=== PATIENT | male | born 1950 | race Caucasian/White ===

== ENCOUNTER 2021-09-06 05:37 | Day surgery (SDC) | payer OTHER ==
[~2021-09-06] VITALS: Ht 182.9 cm; Wt 100.0 kg
[~2021-09-06 05:37] MED LIST: Aspir 8181 MG PO; B-12500 MC2 PO; FAMO20 PO; GLIP10 PO; INSN100I SC; INSULANI; LISI10 PO; LISI5 PO; Lovastatin20 MG PO; METF500C PO; PANT40 PO; TRULICITY1.5 MG/0.1 SQ
--- NOTE | 2021-09-06 08:15 | NUR ---
assumed care of patient. patient alert and responds appropritely. right groin site soft and nontender. no hematoma, no bleeding. denies discomfort.
--- NOTE | 2021-09-06 11:45 | NUR ---
PATIENT A&O. AT BEDSIDE.PATIENT AND WFE VERBALIZED UBDERSTANDING OF DISCHARGE INSTRUCTIONS AND PRECAUTIONS. RIGHT GROIN SITE REMAINS SOFT AND NONTENDER, NO HEMATOMA, NO BLEEDING. DRESSING D&I.IV SIT DCED WITH ACTHETER INTACT. NO FURTHER QUSETIONS. PATIENT DISCHRGED VIA WHEEL CAIR. DRIVING.
== END 2021-09-06 15:29 | disposition home or self-care (01) ==
LOC: MHTC 05:37
DX: I25.709 Atherosclerosis of coronary artery bypass graft(s), unspecified, with unspecified angina pectoris (principal); I25.119 Atherosclerotic heart disease of native coronary artery with unspecified angina pectoris; I25.82 Chronic total occlusion of coronary artery; R94.39 Abnormal result of other cardiovascular function study; I10 Essential (primary) hypertension; E78.5 Hyperlipidemia, unspecified; I51.9 Heart disease, unspecified; E78.00 Pure hypercholesterolemia, unspecified; K31.9 Disease of stomach and duodenum, unspecified; I77.819 Aortic ectasia, unspecified site; R47.81 Slurred speech; Z95.1 Presence of aortocoronary bypass graft; E11.9 Type 2 diabetes mellitus without complications; K21.9 Gastro-esophageal reflux disease without esophagitis; G47.33 Obstructive sleep apnea (adult) (pediatric); Z87.891 Personal history of nicotine dependence; Z88.5 Allergy status to narcotic agent; Z79.82 Long term (current) use of aspirin; Z79.4 Long term (current) use of insulin; Z79.899 Other long term (current) drug therapy
CPT/HCPCS: 76937; 93455; 99152; 99153; C1760; C1769; C1894; J1644; J2250; J3010; J7030; J7040; Q9967

== ENCOUNTER 2022-04-24 10:20 | Day surgery (SDC) | payer OTHER ==
[~2022-04-24] VITALS: Ht 182.9 cm; Wt 99.0 kg
--- NOTE | 2022-04-24 11:55 | NUR ---
04/24/22 1155 Alma Shin TETRACAINE PLACED IN LEFT EYE 1142 PLEDGET PLACED IN LEFT EYE AT 1143
== END 2022-04-24 13:15 | disposition home or self-care (01) ==
LOC: ORSCSDS 10:20
PROVIDERS: Ophthalmology
PROC: 08RK3JZ Replacement of Left Lens with Synthetic Substitute, Percutaneous Approach (ICD-10-PCS; principal; 2022-04-24 12:00)
DX: E11.36 Type 2 diabetes mellitus with diabetic cataract (principal); H25.12 Age-related nuclear cataract, left eye; H52.202 Unspecified astigmatism, left eye; I10 Essential (primary) hypertension; I25.10 Atherosclerotic heart disease of native coronary artery without angina pectoris; Z87.891 Personal history of nicotine dependence; G47.33 Obstructive sleep apnea (adult) (pediatric); Z79.4 Long term (current) use of insulin; I25.2 Old myocardial infarction; Z79.899 Other long term (current) drug therapy; E78.5 Hyperlipidemia, unspecified; Z79.84 Long term (current) use of oral hypoglycemic drugs
CPT/HCPCS: 82947; J2001; J2250; J3010; J3301; J7040; V2632

== ENCOUNTER 2022-05-01 08:51 | Day surgery (SDC) | payer OTHER ==
[~2022-05-01] VITALS: Ht 182.9 cm; Wt 98.0 kg
== END 2022-05-01 11:05 | disposition home or self-care (01) ==
LOC: ORSCSDS 08:51
PROVIDERS: Ophthalmology
PROC: 08DJ3ZZ Extraction of Right Lens, Percutaneous Approach (ICD-10-PCS; principal; 2022-05-01 10:30)
DX: H25.11 Age-related nuclear cataract, right eye (principal); Z96.1 Presence of intraocular lens; I25.2 Old myocardial infarction; I25.10 Atherosclerotic heart disease of native coronary artery without angina pectoris; I10 Essential (primary) hypertension; K21.9 Gastro-esophageal reflux disease without esophagitis; E78.5 Hyperlipidemia, unspecified; E11.9 Type 2 diabetes mellitus without complications; Z79.82 Long term (current) use of aspirin; Z79.4 Long term (current) use of insulin; Z87.891 Personal history of nicotine dependence; Z79.899 Other long term (current) drug therapy
CPT/HCPCS: 82947; J2001; J2250; J3010; J3301; J7040; V2632

== ENCOUNTER 2022-09-17 14:33 | Inpatient (IN) | payer OTHER ==
[~2022-09-17] VITALS: Ht 182.9 cm; Wt 98.7 kg
[~2022-09-17 14:33] MED LIST changes: -INSULANI; +INSULANI SC; +TRULICITY1.5 MG/0.1 SC; -TRULICITY1.5 MG/0.1 SQ
[2022-09-17 16:04] LABS: BASOPHILS ABSOLUTE AUTO 0.06 K/mm3 (0.00-0.23); BASOPHILS PERCENT AUTO 1 % (0-2); EOSINOPHILS ABSOLUTE AUTO 0.26 K/mm3 (0.00-0.68); EOSINOPHILS PERCENT AUTO 4 % (0-6); Hematocrit 41.7 % (37.0-53.0); Hemoglobin 14.2 g/dL (13.5-17.5); IMMATURE GRAN ABSOLUTE AUTO 0.02 K/mm3 (0.00-0.10); IMMATURE GRAN PERCENT AUTO 0 % (0-1); LYMPHOCYTES ABSOLUTE AUTO 2.77 K/mm3 (0.84-5.20); LYMPHOCYTES PERCENT AUTO 38 % (21-46); MONOCYTES ABSOLUTE AUTO 0.79 K/mm3 (0.16-1.47); MONOCYTES PERCENT AUTO 11 % (4-13); Mean Corpuscular HGB 29.1 pg (26.0-34.0); Mean Corpuscular HGB Conc 34.1 g/dL (31.5-36.5); Mean Corpuscular Volume 86 fL (80-100); Mean Platelet Volume 10.1 fL (9.1-12.4); NEUTROPHILS ABSOLUTE AUTO 3.35 K/mm3 (1.96-9.15); NEUTROPHILS PERCENT AUTO 46 % (41-73); Platelet Count 227 K/mm3 (150-400); RDW Coefficient Variation 12.8 % (11.7-14.2); RDW Standard Deviation 39.6 fL (35.1-46.3); Red Blood Cell Count 4.88 M/mm3 (4.30-5.90); White Blood Cell Count 7.25 K/mm3 (4.00-11.30)
[2022-09-17 16:38] LABS: Albumin, Blood 3.4 g/dL (3.4-5.0); Albumin/Globulin Ratio 0.8 (0.8-1.8); Bilirubin, Total 0.4 mg/dL (0.1-1.0); Bun/Creatinine Ratio 19.3 (12.0-20.0); Creatinine, Blood 1.14 mg/dL (0.60-1.20); Globulin, Blood 4.4 g/dL (2.2-4.0); Potassium, Blood 4.2 mmol/L (3.5-5.5); Total Protein, Blood 7.8 g/dL (6.4-8.2)
--- NOTE | 2022-09-17 19:11 | NUR ---
PT CHART REVIEWED FOR ADMISSION
[2022-09-17 20:18] LABS: U Amphetamine Screen Not Detected; U Barbituate Screen Not Detected; U Benzodiazapine Screen Not Detected; U Buprenorphine Screen Not Detected; U Cannabinoids Screen Not Detected; U Cocaine Screen Not Detected; U Methadone Screen Not Detected; U Methamphetamine Screen Not Detected; U Opiates Screen Not Detected; U Oxycodone Screen Not Detected; U Phencyclidine Screen Not Detected; U Propoxyphene Screen Not Detected
[2022-09-17 20:40] VITALS: BP 169/68
[2022-09-18] VITALS (7 sets, daily range): BP systolic 149–189; BP diastolic 55–81
--- NOTE | 2022-09-18 04:06 | NUR ---
SHIFT SUMMARY. PT ARRIVED ON UNIT EARLY IN EVENING. AOX4, PLEASANT, COOPERATIVE WITH CARE. ROOM AIR, ADA DIET. ADMITTED FOR LIKELY CVA. BEDREST DUE TO SIGNIFICANT LEG WEAKNESS. PT USES WHEELCHAIR AT BASELINE BUT REPORTS HE OFTEN IS ABLE TO WALK SHORT DISTANCES WITH MINIMAL ASSISTANCE WHICH HE FEELS LIKE HE IS DEFINITELY NOT ABLE TO DO NOW. SCHEDULED FOR MRI TODAY, SCREENING FORM COMPLETED. NS RUNNING THROUGHOUT SHIFT PER ORDER. PT WAS HAVING TROUBLE SLEEPING EARLY THIS MORNING. CALLED HOSPITALIST DR. LANE WHO ORDERED ONE TIME DOSE OF TRAZADONE AND AFTER ADMINISTRATION PT HAS BEEN SLEEPING PEACEFULLY. PT IS EXCEPTIONALLY PLEASANT AND COOPERATIVE WITH CARE. CALLS APPROPRIATELY. CONTINENT. BED LOCKED IN LOWEST POSITION. CALL LIGHT LEFT WITHIN REACH.
[2022-09-18] MEDS ORDERED: THERA-D2000 UNIT PO (05:25)
[2022-09-18] MEDS ORDERED: Flonase 0.05% N16 GM (05:26)
[2022-09-18] MEDS ORDERED: MELA3 PO (05:32)
[2022-09-18] MEDS ORDERED: ARTIFICIAL TEA1 EAC1 BOTHEYES (05:34)
[2022-09-18] MEDS ORDERED: MIRALAX17 GM PO (05:35)
[2022-09-18] MEDS ORDERED: OXAYDO5 M1 PO (05:35)
[2022-09-18] MEDS ORDERED: RANO500T PO (05:35)
--- NOTE | 2022-09-18 16:00 | NUR ---
CALLED DR CALZADA- PT STATED THEY "ATTEMPTED TO DO AN MRI ON ME BEFORE AND IT DIDN'T WORK" PT STATES HE NEEDS TO BE PREMEDICATED FOR THE MRI. CALLED AND RECIEVED A VERBAL ORDER FOR IV ATIVAL 1MG DOSE PRE MRI.
--- NOTE | 2022-09-18 17:00 | NUR ---
CALLED DR CALZADA- PT WAS PREPARING FOR MRI. VITALS CHECKED IV ATIVAN PUSH STARTED ORDERED FOR CLAUSTERPHOBIA. PT HR 49. SPOKE TO DR CALZADA OK TO GIVE O.75MG OF THE CURRENT PUSH. ADDITIONAL 0.25MG WASTED WITH MARANDA KAY. PT WAS ABLE TO GO DOWN AND HAVE THE MRI WITHOUT INCIDENT.
--- NOTE | 2022-09-18 18:38 | NUR ---
CALLED DR CALZADA- PT BP HAS BEEN ELEVATED GREATER THAN 180 FOR THE LAST THREE CHECKS, PERMISIVE HTN ALLOWED UP TO 180. PRN HYDRALIZINE 10MG IV Q4 FOR SBP OVER 180.
--- NOTE | 2022-09-18 18:44 | NUR ---
SHIFT SUMMARY- PT ALERT AND ORIENTED, RIGHT SIDEDED DEFICITE REMAINS UNCHANGED THIS EVENING COMPARED TO THIS MORNING DR CALZADA REQUESTED Q4 NEURO CHECKS. BP ELEVATED THIS EVENING TO SBP GREATER THAN 180. HYDRALIZINE ORDERED FOR SBP OVER 180. PT RECIEVED 0.75 MG OF IV ATIVAN PRE MRI TODAY. HE WAS SEEN BY PT/OT/ST THE DENTAL HYGENIST, ECHO AND ULTRASOUND WELL THE MRI TODAY. PT MAY BE A LITTLE MORE TIRED TONIGHT THAN PREVIOUS D/T ALL THE ACTIVITY. SPOUSE IS STAYING AT THE BEDSIDE, SLEEPING ON THE BENCH. PT REQUESTED THAT SHE STAY WITH HIM. PT IS A [place] . PT IS A 2P MAX ASSIST TO SIT AT THE EOB. RIGHT NET DEVELOPER ARCHITECT IS MINIMAL, RIGHT ARM LIFT IS A LITTLE MORE THIS EVENINGWHEN COMPARD TO THIS MORNING. RIGHT SIDED FACIAL DROOP IS MORE NOTABLE IN THE MORNING WHEN COMPARED TO WHEN THE PT IS MORE AWAKE. WILL PASS ON TO NIGHT RN IN BEDSIDE REPORT. PT IN BED, CALL LIGHT IN REACH NO S&S OF DISTRESS NOTED.
[2022-09-19 03:22] VITALS: BP 171/67
[2022-09-19 05:46] LABS: BASOPHILS ABSOLUTE AUTO 0.05 K/mm3 (0.00-0.23); BASOPHILS PERCENT AUTO 1 % (0-2); EOSINOPHILS PERCENT AUTO 3 % (0-6); Hematocrit 41.6 % (37.0-53.0); Hemoglobin 14.2 g/dL (13.5-17.5); IMMATURE GRAN ABSOLUTE AUTO 0.03 K/mm3 (0.00-0.10); IMMATURE GRAN PERCENT AUTO 0 % (0-1); LYMPHOCYTES ABSOLUTE AUTO 2.35 K/mm3 (0.84-5.20); LYMPHOCYTES PERCENT AUTO 33 % (21-46); MONOCYTES ABSOLUTE AUTO 0.72 K/mm3 (0.16-1.47); MONOCYTES PERCENT AUTO 10 % (4-13); Mean Corpuscular HGB 29.2 pg (26.0-34.0); Mean Corpuscular HGB Conc 34.1 g/dL (31.5-36.5); Mean Corpuscular Volume 86 fL (80-100); Mean Platelet Volume 10.4 fL (9.1-12.4); NEUTROPHILS ABSOLUTE AUTO 3.79 K/mm3 (1.96-9.15); NEUTROPHILS PERCENT AUTO 53 % (41-73); Platelet Count 208 K/mm3 (150-400); RDW Coefficient Variation 12.8 % (11.7-14.2); RDW Standard Deviation 39.9 fL (35.1-46.3); Red Blood Cell Count 4.86 M/mm3 (4.30-5.90); White Blood Cell Count 7.14 K/mm3 (4.00-11.30)
[2022-09-19 06:17] LABS: Bun/Creatinine Ratio 14.7 (12.0-20.0); Calcium, Blood 8.4 mg/dL (8.5-10.1); Creatinine, Blood 1.02 mg/dL (0.60-1.20); Potassium, Blood 3.9 mmol/L (3.5-5.5)
[2022-09-19 07:12] VITALS: BP 167/62
--- NOTE | 2022-09-19 07:45 | NUR ---
SHIFT EMILY, PT REATING IN BED, PT HAS PO DROOP, AND DECREASED STRNGTH TO RIGHT SIDE. PT DURING NIGHT WHEN NOT SLEEPING HAS BEEN EXERSIZING HIS RIGHT ARM AND LEG AND IS ABLE TO LIFT RIGHT ARM AND LEG AND HAS GOOD PUSH PULLS TN THAT ARE NOT QUITE EQUAL NO DRIFT TO R ARM OR LEG WHEN HOLDING UP. NO DEVIATION TO TONGUE, PT IS ALERT AND ORIENTED. PT AND VU OF FIRE SAFETY , NOT HAVING DEVICES THAT COULD START FIRE.
--- NOTE | 2022-09-19 08:02 | NUR ---
NEURO CHECK DONE AT 2200 PT HAS NO DEVAIATION TO TOUNGE CAN SMILE AND PUFF OUT CHEEKS, NO DRIFT TO RIGHT ARM OR LEG, WEAKER PUSH PULLS TO RIGHT LEG AND ARM AND WEAKEN HANG GRASP. PT HAS A RIGHT PO DROOP. 0200 NO CHANGE IN NEURO CHECK. 0600 NOT CHNAGE TO NEURO CHECK. PT HAD BEEN EXCERSIZING RIGH ARM AND LEG TO HELP GET BACK STRENGTH.
[2022-09-19 08:53] LABS: International Normalized Ratio 1.01; Prothrombin Time Results 10.6 Sec (9.7-11.5)
[2022-09-19 15:26] VITALS: BP 182/70
--- NOTE | 2022-09-19 18:30 | NUR ---
SHIFT SUMMARY PATIENT CONTINUES TO HAVE R SIDED WEAKNESS. PATIENT ALERT AND INTERACTIVE BUT NOT AWARE OF HIS LIMITS AND FEELS THAT HE CAN DO MORE THAN HE IS SAFELY CAPABLE OF DOING. 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 PATIENT WORKED WITH PT AND OT. PATIENT PLANS TO TRANSFER TO [facility] FOR FURTHER THERAPY BEFORE ATTEMPTING TO RETURN HOME. SUPPORTIVE BUT CONCERNED OF PATIENT'S FALL RISK. PATIENT ATTEMPTED TO GET UP OUT OF BED WITH 2 PERSON ASSIST. LEGS BUCKLING AND UNABLE TO STAND. PATIENT WANTING TO USE COMMODE BUT REDIRECTED TO USE A BEDPAN. CONTINUE TO MONITOR BLOOD SUGARS AND GIVE INSULIN NEEDED. PATIENT USES JAIDA MONITORING SYSTEM AT HOME AND MANAGES HIS INSULIN. BP CONTINUES TO BE ELEVATED. PATIENT MEDICATED WITH HYDRALAZINE AFTER AFTERNOON VS. PATIENT DENIED ANY HEADACHE OR VISION ISSUES. PATIENT IS A [facility] PATIENT THROUGH [place]. PATIENT AND FAMILY EDUCATED RELATED TO HOSPITAL SAFETY AND NO USE OF COMBUSTABLES WHILE IN THE HOSPITAL. PATIENT MONITORED WITH HOURLY REGARDING FIRE SAFETY
[2022-09-19 19:18] VITALS: BP 192/94
[2022-09-19 21:05] VITALS: BP 174/88
[2022-09-20 04:48] VITALS: BP 163/89
[2022-09-20 04:49] VITALS: BP 163/89
[2022-09-20 05:24] LABS: BASOPHILS ABSOLUTE AUTO 0.08 K/mm3 (0.00-0.23); BASOPHILS PERCENT AUTO 1 % (0-2); EOSINOPHILS ABSOLUTE AUTO 0.23 K/mm3 (0.00-0.68); EOSINOPHILS PERCENT AUTO 3 % (0-6); Hematocrit 44.4 % (37.0-53.0); Hemoglobin 15.2 g/dL (13.5-17.5); IMMATURE GRAN ABSOLUTE AUTO 0.03 K/mm3 (0.00-0.10); IMMATURE GRAN PERCENT AUTO 0 % (0-1); LYMPHOCYTES ABSOLUTE AUTO 2.64 K/mm3 (0.84-5.20); LYMPHOCYTES PERCENT AUTO 28 % (21-46); MONOCYTES ABSOLUTE AUTO 0.91 K/mm3 (0.16-1.47); MONOCYTES PERCENT AUTO 10 % (4-13); Mean Corpuscular HGB Conc 34.2 g/dL (31.5-36.5); Mean Corpuscular Volume 85 fL (80-100); Mean Platelet Volume 10.3 fL (9.1-12.4); NEUTROPHILS ABSOLUTE AUTO 5.42 K/mm3 (1.96-9.15); NEUTROPHILS PERCENT AUTO 58 % (41-73); Platelet Count 231 K/mm3 (150-400); RDW Coefficient Variation 13.2 % (11.7-14.2); RDW Standard Deviation 40.4 fL (35.1-46.3); Red Blood Cell Count 5.24 M/mm3 (4.30-5.90); White Blood Cell Count 9.31 K/mm3 (4.00-11.30)
[2022-09-20 07:09] VITALS: BP 147/66
[2022-09-20 07:31] VITALS: BP 150/69
--- NOTE | 2022-09-20 07:57 | NUR ---
SHIFT SUMMARY PATIENT A/OX4, BRIGHT AFFECT. HYPERVERBAL AND EXPANSIVE AT TIMES. DENIES PAIN NOR DISCOMFORT. CONTINUES WITH RIGHT SIDED WEAKNESS. SPOUSE AT BEDSIDE THROUGHOUT SHIFT. C/O OF MUSCLE SPASMS IN RLE, MAKING IT DIFICULT TO SLEEP. PROVIDER NOTIFIED, RECEIVED NEW ONE TIME ORDER FOR IVP VALIUM 2.5MG, TOLERATED WELL. PATIENT EDUCATED ON FIRE SAFETY AND RISK OF INJURY R/T OXYGEN USE, VERBALIZED UNDERSTANDING, DENIES SMOKING. NO ACUTE CHANGES OVERNIGHT. BED LOW, CALL IN REACH.
[2022-09-20 10:21] LABS: Bun/Creatinine Ratio 14.4 (12.0-20.0); Calcium, Blood 9.6 mg/dL (8.5-10.1); Creatinine, Blood 1.11 mg/dL (0.60-1.20); Potassium, Blood 4.1 mmol/L (3.5-5.5)
[2022-09-20 11:56] LABS: Influenza A, PCR NEGATIVE (NEGATIVE); Influenza B, PCR NEGATIVE (NEGATIVE); Resp Syncytial Virus, PCR NEGATIVE (NEGATIVE); SARS-Cov-2 (COVID-19) PCR, MMC NEGATIVE (NEGATIVE)
[2022-09-20] MEDS ORDERED: CLOP75 PO (13:11)
--- NOTE | 2022-09-20 14:00 | NUR ---
SHIFT SUMMARY AND DISCHARGE PATIENT DISCHARGED TO [facility]. AND SON PRESENT AT TRANSFER. PATIENT TRANSFERED BY MEDICAL TRANSPORT. BELONGINGS SENT WITH FAMILY. ROOM CHECK DONE PRIOR TO DISCHARGE. PATIENT CONTINUES TO HAVE R SIDED WEAKNESS AND NEGLECT. PATIENT DENIES PAIN. PATIENT NEEDING REPEATED REMINDING FOR SAFETY. SCABBED AREA OVER L LEG UNCHANGED. DRY DRESSING APPLIED OVER AREA BECAUSE OF TRANSPORT TO PROTECT AREA. IV DC'D PRIOR TO TRANSPORT WITH CATHETER INTACT. FAMILY AWARE OF DISCHARGE PLAN AND WILL BE FOLLOWING PATIENT OVER TO REHAB.
== END 2022-09-20 14:42 | DRG 65 ==
LOC: ER 14:33 → MEDS 18:37 → ENPENDDIS 09-20 12:57 → MEDS 09-20 14:42
PROVIDERS: Emergency Medicine; ADMIT Hospitalist
DX: I63.9 Cerebral infarction, unspecified (principal); G81.91 Hemiplegia, unspecified affecting right dominant side; R29.810 Facial weakness; I10 Essential (primary) hypertension; Z20.822 Contact with and (suspected) exposure to COVID-19; E78.5 Hyperlipidemia, unspecified; E11.42 Type 2 diabetes mellitus with diabetic polyneuropathy; R20.0 Anesthesia of skin; I25.10 Atherosclerotic heart disease of native coronary artery without angina pectoris; K21.9 Gastro-esophageal reflux disease without esophagitis; I25.2 Old myocardial infarction; Z95.5 Presence of coronary angioplasty implant and graft; Z88.5 Allergy status to narcotic agent; Z88.8 Allergy status to other drugs, medicaments and biological substances; Z79.4 Long term (current) use of insulin; Z79.82 Long term (current) use of aspirin; Z79.899 Other long term (current) drug therapy
CPT/HCPCS: 0241U; 36415; 70450; 70496; 70498; 70551; 71045; 80048; 80053; 82947; 85025; 85610; 92610; 93005; 93010; 93306; 97112; 97162; 97166; 97530; 99285-25; A9270; G0480; J0360; J1650; J1815; J2060; J3360; J7030; Q9967

== ENCOUNTER 2024-03-17 02:39 | Inpatient (IN) | payer OTHER ==
[2024-03-17] VITALS (12 sets, daily range): BP systolic 119–170; BP diastolic 46–112
[~2024-03-17] VITALS: Ht 185.4 cm; Wt 103.0 kg
[~2024-03-17 02:39] MED LIST changes: +ARTIFICIAL TEA1 EAC1 BOTHEYES; +ASPI81CH PO; +ATOR40TA PO; +CLOP75 PO; +DOCUSATE PO; +Flonase 0.05% N16 GM; +LISI20 PO; +MELA3 PO; +MIRALAX17 GM PO; +NOVOLOG100 UNIT/2 SC; +OXAYDO5 M1 PO; +RANO500T PO; +SENNA PO; +THERA-D2000 UNIT PO; +VITAMIN B121000 MCG PO; +Vitamin B-12100 MCG PO
[2024-03-17 02:55] LABS: BASOPHILS ABSOLUTE AUTO 0.08 K/mm3 (0.00-0.23); BASOPHILS PERCENT AUTO 1 % (0-2); EOSINOPHILS ABSOLUTE AUTO 0.27 K/mm3 (0.00-0.68); EOSINOPHILS PERCENT AUTO 3 % (0-6); Hematocrit 41.5 % (37.0-53.0); Hemoglobin 14.4 g/dL (13.5-17.5); IMMATURE GRAN ABSOLUTE AUTO 0.05 K/mm3 (0.00-0.10); IMMATURE GRAN PERCENT AUTO 1 % (0-1); LYMPHOCYTES PERCENT AUTO 39 % (21-46); MONOCYTES ABSOLUTE AUTO 0.84 K/mm3 (0.16-1.47); MONOCYTES PERCENT AUTO 10 % (4-13); Mean Corpuscular HGB 29.8 pg (26.0-34.0); Mean Corpuscular HGB Conc 34.7 g/dL (31.5-36.5); Mean Corpuscular Volume 86 fL (80-100); Mean Platelet Volume 9.9 fL (9.1-12.4); NEUTROPHILS ABSOLUTE AUTO 3.69 K/mm3 (1.96-9.15); NEUTROPHILS PERCENT AUTO 45 % (41-73); Platelet Count 235 K/mm3 (150-400); RDW Coefficient Variation 13.3 % (11.7-14.2); RDW Standard Deviation 41.2 fL (35.1-46.3); Red Blood Cell Count 4.84 M/mm3 (4.30-5.90); White Blood Cell Count 8.13 K/mm3 (4.00-11.30)
[2024-03-17 03:18] LABS: Albumin, Blood 3.2 g/dL (3.4-5.0); Albumin/Globulin Ratio 0.7 (0.8-1.8); Bilirubin, Total 0.5 mg/dL (0.1-1.0); Bun/Creatinine Ratio 19.6 (12.0-20.0); Creatinine, Blood 1.07 mg/dL (0.60-1.20); Globulin, Blood 4.4 g/dL (2.2-4.0); Potassium, Blood 4.2 mmol/L (3.5-5.5); Total Protein, Blood 7.6 g/dL (6.4-8.2)
[2024-03-17 04:25] LABS: D-Dimer, Quantitative 0.73 mg/L FEU (0.00-0.52); International Normalized Ratio 0.96; Prothrombin Time Results 10.3 Sec (9.7-11.5)
[2024-03-17] MEDS ORDERED: Heparin Sodium 5000 Units/ML 1ML MDV IV ONE (05:50)
[2024-03-17] MEDS ORDERED: Heparin Sodium,Porcine/0.5 NS 500 ML IV SCH (05:50)
[2024-03-17 06:15] LABS: Anti-Xa UFH, PHA Monitoring <0.10 IU/mL
[2024-03-17] MEDS ORDERED: Insulin Human Lispro 100 Units/ML 3ML Syringe SC SCH (07:30)
[2024-03-17] MEDS ORDERED: Lisinopril 20 MG Tab PO SCH (09:00)
[2024-03-17] MEDS ORDERED: Insulin Glargine-Yfgn 100 Unit/mL 3 ML SYR SC SCH (09:00)
[2024-03-17] MEDS ORDERED: Aspirin 81 MG Chew PO SCH (09:00)
--- NOTE | 2024-03-17 12:33 | NUR ---
THIS RN RECEIVED REPORT ON PATIENT AND AWAITING ARRIVAL TO UNIT.
[2024-03-17] MEDS ORDERED: HydrALAZINE HCl 20 MG / ML 1ML Vial IV PRN (13:25)
--- NOTE | 2024-03-17 13:30 | NUR ---
ARRIVAL TO PCU 11 PT ARRIVED TO PCU 11 AT APPROXIMATELY 1300. PT SLID OVER FROM ER GURNEY TO HOSPITAL BED BY CLINICAL STAFF MEMBERS. PT A&Ox4, CALLS AND COMMUNICATES NEEDS APPROPRIATELY, ORIENTED TO CALL LIGHT/UNIT. BP ELEVATED, PHYSICIAN NOTIFIED - ORDERS PLACED. SINUS w/ PAC/PVCs 50-80's, DENIES CP/PRESSURE. SpO2> 92% RA, DENIES SOB. PT HAS Hx CVA WITH R SIDED DEFICITS, CAN MOVE R ARM AND SQUEEZE R HAND, CAN MINIMALLY MOVE R LEG. REPORTS USING [employer]/THERAPY EQUIPMENT AT HOME FOR TRANSFERS. CALL LIGHT IN REACH, BED IN LOWEST POSITION, AT BEDSIDE.
[2024-03-17] MEDS ORDERED: Lisinopril 20 MG Tab PO ONE (14:00)
[2024-03-17] MEDS ORDERED: Metoprolol Tartrate 25 MG Tab PO SCH (14:05)
[2024-03-17] MEDS ORDERED: Clopidogrel Bisulfate 75 MG Tab PO SCH (14:05)
[2024-03-17] MEDS ORDERED: Ranolazine 500 MG ER Tablet PO SCH (14:05)
[2024-03-17] MEDS ORDERED: Dose Adjust by Pharmacy XX STA (15:15)
--- NOTE | 2024-03-17 18:42 | NUR ---
Pt. is awake in bed when he welcomed my visit. Pts. spouse and Pastors are present. Facilitated a short life review an vrbalized that I would check on the Pt. in the AM. The Pts. pastors continued spiritual care when a Rapid Response was called for another Pt. We reamina available to the Pt. and family.
--- NOTE | 2024-03-17 19:30 | NUR ---
SHIFT SUMMARY SEE PREVIOUS NOTE. NO ACUTE CHANGES SINCE ARRIVING TO PCU 11. BP MANAGED PER EMAR. DENIES CP/PRESSURE/SOB. HEPARIN gtt INFUSING PER EMAR. NO OTHER EVENTS, REPORT GIVEN TO ONCOING RN.
[2024-03-17] MEDS ORDERED: Clarify Drug Order XX ONE (20:50)
[2024-03-18 02:28] LABS: BASOPHILS ABSOLUTE AUTO 0.07 K/mm3 (0.00-0.23); BASOPHILS PERCENT AUTO 1 % (0-2); EOSINOPHILS ABSOLUTE AUTO 0.26 K/mm3 (0.00-0.68); EOSINOPHILS PERCENT AUTO 3 % (0-6); Hematocrit 38.6 % (37.0-53.0); Hemoglobin 13.2 g/dL (13.5-17.5); IMMATURE GRAN ABSOLUTE AUTO 0.03 K/mm3 (0.00-0.10); IMMATURE GRAN PERCENT AUTO 0 % (0-1); LYMPHOCYTES ABSOLUTE AUTO 3.09 K/mm3 (0.84-5.20); LYMPHOCYTES PERCENT AUTO 41 % (21-46); MONOCYTES PERCENT AUTO 11 % (4-13); Mean Corpuscular HGB 29.8 pg (26.0-34.0); Mean Corpuscular HGB Conc 34.2 g/dL (31.5-36.5); Mean Corpuscular Volume 87 fL (80-100); NEUTROPHILS ABSOLUTE AUTO 3.38 K/mm3 (1.96-9.15); NEUTROPHILS PERCENT AUTO 44 % (41-73); Platelet Count 197 K/mm3 (150-400); RDW Coefficient Variation 13.3 % (11.7-14.2); RDW Standard Deviation 42.2 fL (35.1-46.3); Red Blood Cell Count 4.43 M/mm3 (4.30-5.90); White Blood Cell Count 7.63 K/mm3 (4.00-11.30)
[2024-03-18 02:58] LABS: Albumin, Blood 2.8 g/dL (3.4-5.0); Albumin/Globulin Ratio 0.7 (0.8-1.8); Bilirubin, Total 0.5 mg/dL (0.1-1.0); Bun/Creatinine Ratio 14.2 (12.0-20.0); Calcium, Blood 8.7 mg/dL (8.5-10.1); Creatinine, Blood 1.13 mg/dL (0.60-1.20); Globulin, Blood 3.9 g/dL (2.2-4.0); Magnesium, Blood 1.9 mg/dL (1.6-2.4); Phosphorus, Blood 2.9 mg/dL (2.5-4.9); Total Protein, Blood 6.7 g/dL (6.4-8.2)
[2024-03-18 04:00] VITALS: BP 142/77
--- NOTE | 2024-03-18 04:57 | NUR ---
SHIFT SUMMARY PATIENT IS A+O X4, ABLE TO MAKE NEEDS KNOWN. HEPARIN gtt INFUSING PER EMAR, NO CHANGES TO RATE DURING THIS SHIFT. LAST TROPONIN OF 157 AT 0218, (SEE CHART FOR PREVIOUS VALUES). DENIES CHEST PAIN AND PRESSURE. PATIENT TO GET AN ANGIO AND ECHO TODAY. PATIENT ON RA, SpO2 94% AND ABOVE. PT HAS A HX OF CVA WITH R SIDED DEFICITS NOTES, PATIENT IS BEDREST BUT CAN TRANSFER TO A CHAIR WITH THE ASSISTANCE OF ONE STAFF MEMEBER. USES URINAL AT BEDSIDE OR IN BED. NO ACUTE EVENTS THIS SHIFT, AT BEDSIDE. CALL LIGHT IN REACH. WILL REPORT TO ONCOMING RN.
[2024-03-18] MEDS ORDERED: Clarify Drug Order XX ONE (05:35)
[2024-03-18 07:28] VITALS: BP 136/64
--- NOTE | 2024-03-18 07:29 | NUR ---
ASSUMPTION NOTE: THIS RN TO ASSUME CARE OF PATIENT. PATIENT SLEEPING WHEN COMING INTO ROOM AND WAS AWAKEN TO TAKE BLOOD SUGAR. SELENE LOW VERIFIED WITH PATIENT THAT HE INDEED DOES WANT AN ANGIOGRAM TODAY 'S NOTE STATES PATIENT DENIED IT YESTERDAY AND WOULD LIKE TO MEDICALLY MANAGE IT. PATIENT STATED HE WOULD LIKE TO KNOW AND WE WILL CONTINUE TO KEEP HIM NPO AND REACH OUT TO DROP COUNT ASSOCIATE TO LET HIM KNOWN ABOUT THE CHANGE IN PATIENT WISHES.
[2024-03-18] MEDS ORDERED: Potassium Chloride 10 Meq Tablet SA PO ONE (08:55)
[2024-03-18] MEDS ORDERED: Isosorbide Mononitrate 30 MG TABCR PO SCH (09:00)
[2024-03-18] MEDS ORDERED: Lisinopril 20 MG Tab PO SCH (09:00)
[2024-03-18] MEDS ORDERED: Mag Sulfate 1 GM/D5% 100ML 100 ML IV STA (09:00)
[2024-03-18] MEDS ORDERED: Atorvastatin 40 MG Tab PO SCH (09:00)
--- NOTE | 2024-03-18 09:17 | NUR ---
PATIENT NOTIFIED THAT MOBILE PAINT SPECIALIST WAS CALLED AND GIVEN THE OK TO LET PATIENT EAT AND AN EKG & ECHO ORDERED. ECHO IS CURRENTLY GETTING DONE AND MD ORDERED TO WAIT FURTHER ORDERS REGARDING THE PROCEDURE OR NOT. IS AT BEDSIDE.
--- NOTE | 2024-03-18 11:33 | NUR ---
STRESS TEST 1ST PORTION JUST STARTED. NUCLEAR MED TECH STATED PATIENT TO NOT EAT AND WILL COME BACK FOR THE REST.
[2024-03-18] MEDS ORDERED: Regadenoson 0.4 MG/5 ML SYRINGE ONE (12:32)
[2024-03-18] MEDS ORDERED: Caffeine Citrated 60 MG/3 ML Vial ONE (12:32)
--- NOTE | 2024-03-18 14:33 | NUR ---
After chatting with the Pts. spouse in the hallway, we went to the room where the Pt. is awake in his bed and welcomes my visit. Facilitated a lengthy life review and consdidered matters of jenniffer and belief. Pt. displays a healthy understanding of the challenges of his health and verbalizes some of the boundaries he is committed to honoring. Prayed with Pt. after the spouse returned. More life story is considered. Pt. verbalized gratitude for the spiritual care visit.
[2024-03-18 15:40] VITALS: BP 139/64
--- NOTE | 2024-03-18 19:51 | NUR ---
START OF SHIFT THIS NURSE ASSSUMED CARE AT APPROXIMATELY 1915. PT RESTING COMFORTABLY IN BED WITH IN THE ROOM. PT HAS NO COMPLAINTS OR CONCERNS AT THIS TIME. PT DENIES CHEST PAIN. WILL CONTINUE THE PLAN OF CARE.
[2024-03-18 21:46] VITALS: BP 106/47
[2024-03-19] VITALS: BP 112/60
[2024-03-19 04:00] VITALS: BP 144/64
[2024-03-19 04:25] LABS: BASOPHILS ABSOLUTE AUTO 0.07 K/mm3 (0.00-0.23); BASOPHILS PERCENT AUTO 1 % (0-2); EOSINOPHILS ABSOLUTE AUTO 0.31 K/mm3 (0.00-0.68); EOSINOPHILS PERCENT AUTO 4 % (0-6); Hematocrit 38.6 % (37.0-53.0); Hemoglobin 13.2 g/dL (13.5-17.5); IMMATURE GRAN ABSOLUTE AUTO 0.04 K/mm3 (0.00-0.10); IMMATURE GRAN PERCENT AUTO 1 % (0-1); LYMPHOCYTES ABSOLUTE AUTO 3.07 K/mm3 (0.84-5.20); LYMPHOCYTES PERCENT AUTO 38 % (21-46); MONOCYTES ABSOLUTE AUTO 0.88 K/mm3 (0.16-1.47); MONOCYTES PERCENT AUTO 11 % (4-13); Mean Corpuscular HGB 29.5 pg (26.0-34.0); Mean Corpuscular HGB Conc 34.2 g/dL (31.5-36.5); Mean Corpuscular Volume 86 fL (80-100); Mean Platelet Volume 9.9 fL (9.1-12.4); NEUTROPHILS PERCENT AUTO 46 % (41-73); Platelet Count 195 K/mm3 (150-400); RDW Coefficient Variation 13.3 % (11.7-14.2); RDW Standard Deviation 41.1 fL (35.1-46.3); Red Blood Cell Count 4.48 M/mm3 (4.30-5.90); White Blood Cell Count 8.07 K/mm3 (4.00-11.30)
--- NOTE | 2024-03-19 05:12 | NUR ---
SHIFT SUMMARY PT RESTING IN BED WITH IN THE ROOM. NO NEW ACUTE EVENTS OVER NIGHT. PT HERAPIN GTT RUNNING PER PHARMACY. PT HAS NO COMPLAINTS AT THIS TIME. WILL CONTINUE THE PLAN OF CARE.
[2024-03-19] MEDS ORDERED: Dose Adjust by Pharmacy XX STA (06:27)
[2024-03-19] MEDS ORDERED: Heparin Sodium 5000 Units/ML 1ML MDV IV ONE (06:30)
[2024-03-19 07:39] VITALS: BP 159/75
[2024-03-19 10:12] VITALS: BP 149/75
[2024-03-19 14:10] VITALS: BP 142/59
[2024-03-19] MEDS ORDERED: Isosorbide Mono30 MG PO (15:15)
[2024-03-19] MEDS ORDERED: METO25 PO (15:16)
--- NOTE | 2024-03-19 16:12 | NUR ---
SHIFT SUMMERY/ DISCHARGE NOTE: PT DISCHARGED TO HOME IN NO ACUTE STRESS AT THIS TIME. THIS RN WENT OVER DC INSTRUCTIONS WITH AND PT AND ADDRESSED ANY QUESITONS OR CONCERS. PT HAD NO ACUTE CHAGES SINCE PREVIOUS ASSESSMENT. BOTH IV'S WERE REMOVED WITH CATHETER INTACT. PT AND DENY ANY FURTHER QUESTIONS OR CONCERNS. PT WAS WHEELED OUT VIA WHEELCHAIR BY THIS RN.
== END 2024-03-19 15:55 | disposition home or self-care (01) | DRG 281 ==
LOC: ER 02:39 → ERHOLD 05:00 → PCU 05:00
PROVIDERS: Emergency Medicine; Family Medicine; Student in an Organized Health Care Education/Training Program; ADMIT Internal Medicine
DX: I21.4 Non-ST elevation (NSTEMI) myocardial infarction (principal); I69.351 Hemiplegia and hemiparesis following cerebral infarction affecting right dominant side; I25.10 Atherosclerotic heart disease of native coronary artery without angina pectoris; I10 Essential (primary) hypertension; G47.33 Obstructive sleep apnea (adult) (pediatric); E78.5 Hyperlipidemia, unspecified; K21.9 Gastro-esophageal reflux disease without esophagitis; I49.1 Atrial premature depolarization; E11.42 Type 2 diabetes mellitus with diabetic polyneuropathy; E11.65 Type 2 diabetes mellitus with hyperglycemia; Z95.1 Presence of aortocoronary bypass graft; I25.2 Old myocardial infarction; Z99.3 Dependence on wheelchair; Z95.5 Presence of coronary angioplasty implant and graft; Z88.5 Allergy status to narcotic agent; Z88.8 Allergy status to other drugs, medicaments and biological substances; Z79.4 Long term (current) use of insulin; Z79.02 Long term (current) use of antithrombotics/antiplatelets; Z79.82 Long term (current) use of aspirin; Z79.85 Long-term (current) use of injectable non-insulin antidiabetic drugs; Z87.891 Personal history of nicotine dependence
CPT/HCPCS: 36415; 71046; 78452; 80053; 82947; 83690; 83735; 84100; 84484; 85025; 85379; 85520; 85610; 85730; 93005; 93010; 93017; 93306; 94762; 99285-25; A9270; A9500; J0706; J1644; J1815; J2785; J3475

== ENCOUNTER 2024-04-28 15:38 | Emergency (ER) | payer OTHER ==
[~2024-04-28] VITALS: Ht 185.4 cm; Wt 104.3 kg
[~2024-04-28 15:38] MED LIST changes: +Amlodipine Bes2.5 MG PO; +Isosorbide Mono30 MG PO; +METO25 PO; +MORP20L PO; +NITR.4SL SL
[2024-04-28 16:23] LABS: BASOPHILS ABSOLUTE AUTO 0.09 K/mm3 (0.00-0.23); BASOPHILS PERCENT AUTO 1 % (0-2); EOSINOPHILS ABSOLUTE AUTO 0.22 K/mm3 (0.00-0.68); EOSINOPHILS PERCENT AUTO 3 % (0-6); Hematocrit 45.5 % (37.0-53.0); Hemoglobin 15.6 g/dL (13.5-17.5); IMMATURE GRAN ABSOLUTE AUTO 0.05 K/mm3 (0.00-0.10); IMMATURE GRAN PERCENT AUTO 1 % (0-1); LYMPHOCYTES PERCENT AUTO 33 % (21-46); MONOCYTES ABSOLUTE AUTO 0.92 K/mm3 (0.16-1.47); MONOCYTES PERCENT AUTO 11 % (4-13); Mean Corpuscular HGB 29.9 pg (26.0-34.0); Mean Corpuscular HGB Conc 34.3 g/dL (31.5-36.5); Mean Corpuscular Volume 87 fL (80-100); Mean Platelet Volume 10.2 fL (9.1-12.4); NEUTROPHILS ABSOLUTE AUTO 4.54 K/mm3 (1.96-9.15); NEUTROPHILS PERCENT AUTO 53 % (41-73); Platelet Count 252 K/mm3 (150-400); RDW Coefficient Variation 13.5 % (11.7-14.2); RDW Standard Deviation 43.3 fL (35.1-46.3); Red Blood Cell Count 5.21 M/mm3 (4.30-5.90); White Blood Cell Count 8.62 K/mm3 (4.00-11.30)
[2024-04-28 16:36] LABS: Albumin, Blood 3.5 g/dL (3.4-5.0); Albumin/Globulin Ratio 0.7 (0.8-1.8); Bilirubin, Total 0.4 mg/dL (0.1-1.0); Bun/Creatinine Ratio 20.3 (12.0-20.0); Calcium, Blood 9.1 mg/dL (8.5-10.1); Creatinine, Blood 1.53 mg/dL (0.60-1.20); Globulin, Blood 4.7 g/dL (2.2-4.0); Potassium, Blood 4.4 mmol/L (3.5-5.5); Total Protein, Blood 8.2 g/dL (6.4-8.2)
[2024-04-28 19:00] VITALS: BP 170/99
== END 2024-04-28 19:15 | disposition home or self-care (01) ==
LOC: ER 15:38
PROVIDERS: Emergency Medicine
DX: R07.89 Other chest pain (principal); R55 Syncope and collapse; K21.9 Gastro-esophageal reflux disease without esophagitis; E78.5 Hyperlipidemia, unspecified; G47.33 Obstructive sleep apnea (adult) (pediatric); I10 Essential (primary) hypertension; E11.42 Type 2 diabetes mellitus with diabetic polyneuropathy; I25.2 Old myocardial infarction; Z87.891 Personal history of nicotine dependence; Z79.82 Long term (current) use of aspirin; Z79.02 Long term (current) use of antithrombotics/antiplatelets; Z79.899 Other long term (current) drug therapy; Z79.4 Long term (current) use of insulin; Z88.5 Allergy status to narcotic agent; Z88.8 Allergy status to other drugs, medicaments and biological substances
CPT/HCPCS: 71046; 80053; 83880; 84484; 85025; 93005; 93010; 99284-25

== ENCOUNTER 2024-05-04 11:33 | Inpatient (IN) | payer OTHER ==
[~2024-05-04] VITALS: Ht 182.9 cm; Wt 105.4 kg
[2024-05-04 12:10] LABS: BASOPHILS ABSOLUTE AUTO 0.07 K/mm3 (0.00-0.23); BASOPHILS PERCENT AUTO 1 % (0-2); EOSINOPHILS ABSOLUTE AUTO 0.26 K/mm3 (0.00-0.68); EOSINOPHILS PERCENT AUTO 3 % (0-6); Hematocrit 40.7 % (37.0-53.0); IMMATURE GRAN ABSOLUTE AUTO 0.05 K/mm3 (0.00-0.10); IMMATURE GRAN PERCENT AUTO 1 % (0-1); LYMPHOCYTES ABSOLUTE AUTO 2.44 K/mm3 (0.84-5.20); LYMPHOCYTES PERCENT AUTO 30 % (21-46); MONOCYTES PERCENT AUTO 10 % (4-13); Mean Corpuscular HGB Conc 34.4 g/dL (31.5-36.5); Mean Corpuscular Volume 87 fL (80-100); Mean Platelet Volume 10.4 fL (9.1-12.4); NEUTROPHILS ABSOLUTE AUTO 4.55 K/mm3 (1.96-9.15); NEUTROPHILS PERCENT AUTO 56 % (41-73); Platelet Count 236 K/mm3 (150-400); RDW Coefficient Variation 13.3 % (11.7-14.2); RDW Standard Deviation 42.5 fL (35.1-46.3); Red Blood Cell Count 4.66 M/mm3 (4.30-5.90); White Blood Cell Count 8.17 K/mm3 (4.00-11.30)
[2024-05-04 12:23] LABS: Albumin, Blood 3.1 g/dL (3.4-5.0); Albumin/Globulin Ratio 0.7 (0.8-1.8); Bilirubin, Total 0.6 mg/dL (0.1-1.0); Bun/Creatinine Ratio 18.7 (12.0-20.0); Calcium, Blood 8.8 mg/dL (8.5-10.1); Creatinine, Blood 1.23 mg/dL (0.60-1.20); Globulin, Blood 4.2 g/dL (2.2-4.0); Potassium, Blood 4.6 mmol/L (3.5-5.5); Total Protein, Blood 7.3 g/dL (6.4-8.2)
[2024-05-04] MEDS ORDERED: FLU VACC TS2024-25(6MOS UP)/PF 45 MCG/0.5 ML SYRINGE IM SCH (14:55)
[2024-05-04] MEDS ORDERED: Nitroglycerin 0.4 MG SUBL SL PRN (15:20)
[2024-05-04 16:00] VITALS: BP 113/65
[2024-05-04] MEDS ORDERED: Lisinopril 20 MG Tab PO SCH (16:00)
[2024-05-04] MEDS ORDERED: Aspirin 325 MG Tab PO ONE (16:00)
[2024-05-04] MEDS ORDERED: Isosorbide Mononitrate 30 MG TABCR PO SCH (16:00)
[2024-05-04 16:13] VITALS: BP 152/97
--- NOTE | 2024-05-04 17:56 | NUR ---
SHIFT SUMMARY; ASSUMED CARE FROM ED FOR ADMIT IN AFTERNOON. A/A/OX4, TRANSFERS TO [facility] WITH 2P ASSIST. VSS, NPO TONIGHT AT MIDNIGHT FOR POSSIBLE ANGIO TOMORROW. WILL CONTINUE TO MONITOR AND TREAT UNTIL REPORT GIVEN TO NOC SHIFT RN.
[2024-05-04] MEDS ORDERED: Dose Adjust by Pharmacy XX STA (17:57)
[2024-05-04] MEDS ORDERED: Heparin Sodium 5000 Units/ML 1ML MDV IV ONE (18:00)
[2024-05-04] MEDS ORDERED: Heparin Sodium,Porcine/0.5 NS 500 ML IV SCH (18:00)
[2024-05-04] MEDS ORDERED: Insulin Regular 100 UNIT/ML 10ML Vial SC SCH (18:00)
[2024-05-04 18:15] LABS: Anti-Xa UFH, PHA Monitoring <0.10 IU/mL; International Normalized Ratio 0.99; Prothrombin Time Results 10.6 Sec (9.7-11.5)
--- NOTE | 2024-05-04 18:24 | NUR ---
Pt. is awake in bed and welcomes this polystyrene molding machine tender. Pt. is acquainted with this polystyrene molding machine tender from earlier hospitalizations. Pt. is pleasant. Facilitate a life review and a health update. Cardiac Doctor arrived and verbalized expectations for a heart cath the next morning. Considered matters of jenniffer and belief and the implications of compromised health. 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 Pt. displayed appropriate concern about his procedure, but verbalized confidence in his jenniffer. Prayed with Pt. Will remain available to Pt.
[2024-05-04 20:00] VITALS: BP 144/57
[2024-05-04] MEDS ORDERED: Insulin Glargine-Yfgn 100 Unit/mL 3 ML SYR SC SCH (21:00)
[2024-05-04] MEDS ORDERED: Melatonin 3 MG Tab PO SCH (21:00)
[2024-05-04] MEDS ORDERED: Ranolazine 500 MG ER Tablet PO SCH (21:00)
[2024-05-04] MEDS ORDERED: Metoprolol Tartrate 25 MG Tab PO SCH (21:00)
[2024-05-04 23:36] VITALS: BP 146/47
[2024-05-05] VITALS (16 sets, daily range): BP systolic 99–175; BP diastolic 53–80
[2024-05-05 00:39] LABS: BASOPHILS ABSOLUTE AUTO 0.07 K/mm3 (0.00-0.23); BASOPHILS PERCENT AUTO 1 % (0-2); EOSINOPHILS ABSOLUTE AUTO 0.27 K/mm3 (0.00-0.68); EOSINOPHILS PERCENT AUTO 3 % (0-6); Hematocrit 36.5 % (37.0-53.0); Hemoglobin 12.6 g/dL (13.5-17.5); IMMATURE GRAN ABSOLUTE AUTO 0.02 K/mm3 (0.00-0.10); IMMATURE GRAN PERCENT AUTO 0 % (0-1); LYMPHOCYTES ABSOLUTE AUTO 3.47 K/mm3 (0.84-5.20); LYMPHOCYTES PERCENT AUTO 41 % (21-46); MONOCYTES ABSOLUTE AUTO 0.77 K/mm3 (0.16-1.47); MONOCYTES PERCENT AUTO 9 % (4-13); Mean Corpuscular HGB 29.8 pg (26.0-34.0); Mean Corpuscular HGB Conc 34.5 g/dL (31.5-36.5); Mean Corpuscular Volume 86 fL (80-100); Mean Platelet Volume 10.8 fL (9.1-12.4); NEUTROPHILS ABSOLUTE AUTO 3.82 K/mm3 (1.96-9.15); NEUTROPHILS PERCENT AUTO 46 % (41-73); Platelet Count 212 K/mm3 (150-400); RDW Coefficient Variation 13.2 % (11.7-14.2); RDW Standard Deviation 41.3 fL (35.1-46.3); Red Blood Cell Count 4.23 M/mm3 (4.30-5.90); White Blood Cell Count 8.42 K/mm3 (4.00-11.30)
[2024-05-05 00:49] LABS: Bun/Creatinine Ratio 20.3 (12.0-20.0); Calcium, Blood 8.3 mg/dL (8.5-10.1); Creatinine, Blood 1.28 mg/dL (0.60-1.20)
[2024-05-05] MEDS ORDERED: Clarify Drug Order XX ONE ×2 (01:10→06:50)
--- NOTE | 2024-05-05 05:37 | NUR ---
SHIFT SUMMARY PT A&Ox4 AND PLEASANT. ON RA AND MAINTAINING O2 SATS >93%. NO C/O CP/PRESSURE. HEPARIN INFUSING @ 15kg/hr WITH NO RATE CHANGE PER PHARMACY. PT GONZALEZ BEEN A-FIB AND OLGA IN 40's-50's T/O NIGHT. NPO AT MIDNIGHT. SCD's IN USE. VSS. PT CALLS APPROPRIATELY. BED IN LOWEST POSITION AND CALL LIGHT IN REACH.
[2024-05-05] MEDS ORDERED: Pantoprazole Sodium 40 MG Tab PO SCH (06:00)
[2024-05-05] MEDS ORDERED: NS 1,000 ML IV SCH ×2 (07:15→11:05)
[2024-05-05] MEDS ORDERED: Insulin Human Lispro 100 Units/ML 3ML Syringe SC SCH (07:30)
[2024-05-05] MEDS ORDERED: Verapamil HCL 2.5 MG/ML 2ML Injection ONE (08:24)
[2024-05-05] MEDS ORDERED: Heparin Sodium 1000 Units/ML 10ML MDV ONE ×2 (08:24→09:58)
[2024-05-05] MEDS ORDERED: NS 250 ML IV ONE (08:24)
[2024-05-05] MEDS ORDERED: NS 1,000 ML IV ONE ×2 (08:24→08:25)
[2024-05-05] MEDS ORDERED: Nitroglycerin 2 MG/20 ML BTL ONE (08:25)
[2024-05-05] MEDS ORDERED: AmLODIPine Besylate 5 MG Tab PO SCH (09:00)
[2024-05-05] MEDS ORDERED: Aspirin 81 MG Chew PO SCH (09:00)
[2024-05-05] MEDS ORDERED: Atorvastatin 40 MG Tab PO SCH (09:00)
[2024-05-05] MEDS ORDERED: Cyanocobalamin 500 MCG Tab PO SCH (09:00)
[2024-05-05] MEDS ORDERED: Isosorbide Mononitrate 60 MG TABCR PO SCH (09:00)
[2024-05-05] MEDS ORDERED: Clopidogrel Bisulfate 75 MG Tab PO SCH (09:00)
[2024-05-05] MEDS ORDERED: FentaNYL Citrate 50 MCG/ML 2 ML Injection ONE (09:12)
[2024-05-05] MEDS ORDERED: Midazolam HCl 1MG / ML 2ML Vial ONE (09:12)
[2024-05-05] MEDS ORDERED: Aspirin 81 MG Chew ONE (09:31)
[2024-05-05] MEDS ORDERED: Clopidogrel Bisulfate 75 MG Tab ONE (09:31)
--- NOTE | 2024-05-05 14:10 | NUR ---
Pt. is awake, and family is getting an update from the cardiac physician. Family are at bedside. After doctor left, homeopathic doctor care is given as the Pt. was considering his options. Listened with empathy and a calming presencce. Prayed with the pt. and family. Pt. verbalized gratitude for the spiritual care visit.
--- NOTE | 2024-05-05 14:11 | NUR ---
TR band - 2 cc of 9cc out, no bruising, bleeding or hematoma noted.
[2024-05-05] MEDS ORDERED: HydrALAZINE HCl 20 MG / ML 1ML Vial IV PRN (15:35)
--- NOTE | 2024-05-05 17:59 | NUR ---
End of Shift Pt A&O x4. BP elevated, otherise VSS. Pt medicated w/ scheduled BP medications & PRN IV hydralazine per eMAR. Monitor showing SB-SR, HR 45-60s. Pt w/ R radial access site post angriogram. TRB recovered WNL. Transparent dressing applied to site & arm board in place. Heparin gtt dc'd per MD order. Zio patch monitor placed this shift by heart center staff. Pt anticipating DC home tomorrow.
[2024-05-05 21:47] LABS: Source, Urine Clean Catch
[2024-05-05 21:58] LABS: Bilirubin, Urine Neg (Neg); Blood, Urine Neg (Neg); Glucose Qualitative, Urine 3+ (Neg); Ketones, Urine Neg (Neg); Leukocyte Esterase, Urine Neg (Neg); Nitrite, Urine Neg (Neg); Protein, Urine 2+ (Neg); Urobilinogen, Urine NORM (Normal)
[2024-05-05 22:12] LABS: Appearance, Urine Clear (Clear); Color, Urine Yellow (P-Yellow)
[2024-05-05 22:13] LABS: Bacteria Few /hpf; Red Blood Cells, Urine 0-2 /hpf (0-2); Squamous Epithelial Cells Few /hpf (Few); White Blood Cells, Urine 0-2 /hpf (0-5)
[2024-05-06 03:44] VITALS: BP 116/57
--- NOTE | 2024-05-06 04:47 | NUR ---
SHIFT SUMMARY: PT HAS HAD AN OVERALL UNEVENTFUL NIGHT. GOOD UOP OBSERVED THROUGHOUT THE NIGHT WITH FREQUENT AWAKENINGS TO URINATE. BP STABLE WITH SBP 100-130'S. ON TELE, PT SINUS ARRYTHMIA RANGING 50'S-80'S. SPO2 > 95% ON ROOM AIR. SCDS IN PLACE.
[2024-05-06 04:58] LABS: BASOPHILS ABSOLUTE AUTO 0.05 K/mm3 (0.00-0.23); BASOPHILS PERCENT AUTO 1 % (0-2); EOSINOPHILS ABSOLUTE AUTO 0.19 K/mm3 (0.00-0.68); EOSINOPHILS PERCENT AUTO 3 % (0-6); Hematocrit 39.5 % (37.0-53.0); Hemoglobin 13.9 g/dL (13.5-17.5); IMMATURE GRAN ABSOLUTE AUTO 0.03 K/mm3 (0.00-0.10); IMMATURE GRAN PERCENT AUTO 0 % (0-1); LYMPHOCYTES ABSOLUTE AUTO 2.01 K/mm3 (0.84-5.20); LYMPHOCYTES PERCENT AUTO 29 % (21-46); MONOCYTES ABSOLUTE AUTO 0.77 K/mm3 (0.16-1.47); MONOCYTES PERCENT AUTO 11 % (4-13); Mean Corpuscular HGB 30.2 pg (26.0-34.0); Mean Corpuscular HGB Conc 35.2 g/dL (31.5-36.5); Mean Corpuscular Volume 86 fL (80-100); Mean Platelet Volume 10.3 fL (9.1-12.4); NEUTROPHILS ABSOLUTE AUTO 3.84 K/mm3 (1.96-9.15); NEUTROPHILS PERCENT AUTO 56 % (41-73); Platelet Count 194 K/mm3 (150-400); RDW Coefficient Variation 13.4 % (11.7-14.2); RDW Standard Deviation 41.4 fL (35.1-46.3); White Blood Cell Count 6.89 K/mm3 (4.00-11.30)
[2024-05-06 05:43] LABS: Albumin/Globulin Ratio 0.8 (0.8-1.8); Bilirubin, Total 0.6 mg/dL (0.1-1.0); Bun/Creatinine Ratio 16.7 (12.0-20.0); Calcium, Blood 8.8 mg/dL (8.5-10.1); Creatinine, Blood 1.32 mg/dL (0.60-1.20); Globulin, Blood 3.9 g/dL (2.2-4.0); Potassium, Blood 4.4 mmol/L (3.5-5.5); Total Protein, Blood 6.9 g/dL (6.4-8.2)
[2024-05-06 07:58] VITALS: BP 171/95
[2024-05-06] MEDS ORDERED: HydroCHLOROthiazide 25 mg Tab PO SCH (09:00)
[2024-05-06 11:37] VITALS: BP 153/73
[2024-05-06] MEDS ORDERED: HYDRA25 PO (12:55)
[2024-05-06] MEDS ORDERED: TELM40 PO (13:00)
--- NOTE | 2024-05-06 13:52 | NUR ---
DISCHARGE UPDATE DISCHARGE PACKET GONE OVER WITH PT AND PT AT 1340. PT DISCHARGED AT 1352 VIA HIS PERSONAL MOTORIZED WHEELCHAIRAND ON RA. PT ABLE TO TRANSFER TO WHEELCHAIR WITH ASSISTANCEOF ONE STAFF MEMBER, TOLERATED WELL. PT PERSONAL BELONGINGS ITH PT AT TIME OF DISCHARGE. DISCHARGE PACKET WITH PTWIFE AT TIME OF DISCHARGE.
== END 2024-05-06 13:55 | disposition home or self-care (01) | DRG 281 ==
LOC: ER 11:33 → PCU 11:34
PROVIDERS: Family Medicine; Student in an Organized Health Care Education/Training Program; ADMIT Hospitalist
PROC: B2121ZZ Fluoroscopy of Single Coronary Artery Bypass Graft using Low Osmolar Contrast (ICD-10-PCS; principal; 2024-05-05)
PROC: 4A033BC Measurement of Arterial Pressure, Coronary, Percutaneous Approach (ICD-10-PCS; 2024-05-05)
PROC: 4A023N7 Measurement of Cardiac Sampling and Pressure, Left Heart, Percutaneous Approach (ICD-10-PCS; 2024-05-05)
PROC: B2111ZZ Fluoroscopy of Multiple Coronary Arteries using Low Osmolar Contrast (ICD-10-PCS; 2024-05-05)
PROC: B2181ZZ Fluoroscopy of Left Internal Mammary Bypass Graft using Low Osmolar Contrast (ICD-10-PCS; 2024-05-05)
DX: I21.4 Non-ST elevation (NSTEMI) myocardial infarction (principal); I50.32 Chronic diastolic (congestive) heart failure; T82.855A Stenosis of coronary artery stent, initial encounter; I69.351 Hemiplegia and hemiparesis following cerebral infarction affecting right dominant side; Y71.2 Prosthetic and other implants, materials and accessory cardiovascular devices associated with adverse incidents; I25.10 Atherosclerotic heart disease of native coronary artery without angina pectoris; R00.1 Bradycardia, unspecified; G89.29 Other chronic pain; M54.9 Dorsalgia, unspecified; I49.1 Atrial premature depolarization; I65.21 Occlusion and stenosis of right carotid artery; I67.2 Cerebral atherosclerosis; I65.02 Occlusion and stenosis of left vertebral artery; E78.5 Hyperlipidemia, unspecified; I11.0 Hypertensive heart disease with heart failure; E11.42 Type 2 diabetes mellitus with diabetic polyneuropathy; G47.33 Obstructive sleep apnea (adult) (pediatric); M19.90 Unspecified osteoarthritis, unspecified site; E11.65 Type 2 diabetes mellitus with hyperglycemia; K21.9 Gastro-esophageal reflux disease without esophagitis; I25.2 Old myocardial infarction; Z95.1 Presence of aortocoronary bypass graft; Z99.3 Dependence on wheelchair; Z95.5 Presence of coronary angioplasty implant and graft; Z88.8 Allergy status to other drugs, medicaments and biological substances; Z88.5 Allergy status to narcotic agent; Z79.4 Long term (current) use of insulin; Z79.02 Long term (current) use of antithrombotics/antiplatelets; Z79.82 Long term (current) use of aspirin; Z87.891 Personal history of nicotine dependence
CPT/HCPCS: 36415; 76937; 80048; 80053; 81001; 82947; 83735; 84484; 85025; 85347; 85520; 85610; 85730; 93246; 93459; 93571; 96374; 99152; 99153; 99285-25; A9270; C1769; C1887; C1894; G0378; J0360; J1644; J1815; J2250; J3010; J7030; J7050; Q9967

== ENCOUNTER 2024-05-14 09:30 | Observation (INO) | payer OTHER ==
[~2024-05-14] VITALS: Ht 185.4 cm; Wt 103.6 kg
[~2024-05-14 09:30] MED LIST changes: +HYDRA25 PO; +TELM40 PO
[2024-05-14] MEDS ORDERED: NS 1,000 ML IV SCH (09:40)
[2024-05-14] MEDS ORDERED: Ondansetron HCl 2 MG / ML 2ML Vial ONE (09:48)
[2024-05-14 09:53] LABS: BASOPHILS ABSOLUTE AUTO 0.08 K/mm3 (0.00-0.23); BASOPHILS PERCENT AUTO 1 % (0-2); EOSINOPHILS ABSOLUTE AUTO 0.23 K/mm3 (0.00-0.68); EOSINOPHILS PERCENT AUTO 2 % (0-6); Hematocrit 40.2 % (37.0-53.0); Hemoglobin 13.9 g/dL (13.5-17.5); IMMATURE GRAN ABSOLUTE AUTO 0.05 K/mm3 (0.00-0.10); IMMATURE GRAN PERCENT AUTO 1 % (0-1); LYMPHOCYTES ABSOLUTE AUTO 2.84 K/mm3 (0.84-5.20); LYMPHOCYTES PERCENT AUTO 30 % (21-46); MONOCYTES ABSOLUTE AUTO 0.98 K/mm3 (0.16-1.47); MONOCYTES PERCENT AUTO 10 % (4-13); Mean Corpuscular HGB Conc 34.6 g/dL (31.5-36.5); Mean Corpuscular Volume 87 fL (80-100); Mean Platelet Volume 10.5 fL (9.1-12.4); NEUTROPHILS ABSOLUTE AUTO 5.25 K/mm3 (1.96-9.15); NEUTROPHILS PERCENT AUTO 56 % (41-73); Platelet Count 251 K/mm3 (150-400); RDW Coefficient Variation 13.2 % (11.7-14.2); Red Blood Cell Count 4.64 M/mm3 (4.30-5.90); White Blood Cell Count 9.43 K/mm3 (4.00-11.30)
[2024-05-14 10:13] LABS: Albumin, Blood 3.2 g/dL (3.4-5.0); Albumin/Globulin Ratio 0.8 (0.8-1.8); Bilirubin, Total 0.5 mg/dL (0.1-1.0); Bun/Creatinine Ratio 20.8 (12.0-20.0); Calcium, Blood 8.5 mg/dL (8.5-10.1); Creatinine, Blood 1.59 mg/dL (0.60-1.20); Potassium, Blood 4.2 mmol/L (3.5-5.5); Total Protein, Blood 7.2 g/dL (6.4-8.2)
[2024-05-14] MEDS ORDERED: Ondansetron HCl 2 MG / ML 2ML Vial IV PRN (12:00)
[2024-05-14] MEDS ORDERED: FLU VACC TS2024-25(6MOS UP)/PF 45 MCG/0.5 ML SYRINGE IM ONE (12:00)
[2024-05-14 15:29] VITALS: BP 133/64
[2024-05-14] MEDS ORDERED: Nitroglycerin 0.4 MG SUBL SL PRN (15:50)
[2024-05-14] MEDS ORDERED: Atorvastatin 40 MG Tab PO SCH (16:00)
[2024-05-14] MEDS ORDERED: Aspirin 81 MG Chew PO SCH (16:00)
[2024-05-14] MEDS ORDERED: Insulin Human Lispro 100 Units/ML 3ML Syringe SC SCH (16:30)
--- NOTE | 2024-05-14 18:13 | NUR ---
Shift Summary Recieved report from Karine in ED. Pt to room, 4 person transfer from [facility] with slider sheet. Pt and spouse oriented to room and call light. SCD placed. Pt alert, oriented x4; calm and cooperative with care, reports having trouble with short term memory. Pt resting in bed. repositioned q2. Tele sinus 60's, bp stable. Abd soft, nontender +bt noted. Spo2 >90% on ra, breathing even and unlabored. Other vss. No other acute changes noted. Will continue to monitor.
[2024-05-14 19:42] VITALS: BP 147/70
[2024-05-14] MEDS ORDERED: Melatonin 3 MG Tab PO SCH (21:00)
[2024-05-14] MEDS ORDERED: Insulin Glargine-Yfgn 100 Unit/mL 3 ML SYR SC SCH (21:00)
[2024-05-14] MEDS ORDERED: Ranolazine 500 MG ER Tablet PO SCH (21:00)
[2024-05-15 00:08] VITALS: BP 152/61
[2024-05-15 04:25] VITALS: BP 125/62
[2024-05-15 04:29] VITALS: BP 167/81
[2024-05-15 04:56] LABS: Hematocrit 40.6 % (37.0-53.0); Mean Corpuscular HGB Conc 34.5 g/dL (31.5-36.5); Mean Corpuscular Volume 87 fL (80-100); Mean Platelet Volume 10.8 fL (9.1-12.4); Platelet Count 237 K/mm3 (150-400); RDW Coefficient Variation 13.2 % (11.7-14.2); Red Blood Cell Count 4.67 M/mm3 (4.30-5.90); White Blood Cell Count 8.08 K/mm3 (4.00-11.30)
[2024-05-15 05:16] LABS: Bun/Creatinine Ratio 19.4 (12.0-20.0); Calcium, Blood 8.8 mg/dL (8.5-10.1); Creatinine, Blood 1.44 mg/dL (0.60-1.20); Potassium, Blood 4.3 mmol/L (3.5-5.5)
--- NOTE | 2024-05-15 05:44 | NUR ---
pt rested with no complaints of chest pain or shortness of breath.pt denies pain or needs, call light in reach, bed alarm in use
[2024-05-15] MEDS ORDERED: Pantoprazole Sodium 40 MG Tab PO SCH (06:00)
[2024-05-15 07:24] VITALS: BP 151/68
[2024-05-15] MEDS ORDERED: Clopidogrel Bisulfate 75 MG Tab PO SCH (09:00)
[2024-05-15] MEDS ORDERED: Cyanocobalamin 500 MCG Tab PO SCH (09:00)
[2024-05-15] MEDS ORDERED: Losartan Potassium 25 MG Tab PO SCH (09:00)
[2024-05-15] MEDS ORDERED: Isosorbide Mononitrate 60 MG TABCR PO SCH (09:00)
[2024-05-15] MEDS ORDERED: Enoxaparin 40 MG/0.4 ML SYR SC SCH (09:00)
[2024-05-15] MEDS ORDERED: LOSA25 PO (10:37)
--- NOTE | 2024-05-15 12:04 | NUR ---
DISCHARGE: PT DC PCU 01 @1205 VIA PERSONAL WHEELCHAIR. DISCHARGE INSTRUCTIONS AND EDUCATION PROVIDED. ALL BELONGINGS WITH PT.
== END 2024-05-15 12:18 | disposition home or self-care (01) ==
LOC: ER 09:30 → ERHOLD 09:31 → PCU 15:23
PROVIDERS: Emergency Medicine; ADMIT Internal Medicine
DX: R55 Syncope and collapse (principal); I25.10 Atherosclerotic heart disease of native coronary artery without angina pectoris; I21.4 Non-ST elevation (NSTEMI) myocardial infarction; I12.9 Hypertensive chronic kidney disease with stage 1 through stage 4 chronic kidney disease, or unspecified chronic kidney disease; E11.22 Type 2 diabetes mellitus with diabetic chronic kidney disease; N18.30 Chronic kidney disease, stage 3 unspecified; G47.33 Obstructive sleep apnea (adult) (pediatric); E78.5 Hyperlipidemia, unspecified; K21.9 Gastro-esophageal reflux disease without esophagitis; G89.29 Other chronic pain; M54.9 Dorsalgia, unspecified; Z95.1 Presence of aortocoronary bypass graft; Z87.891 Personal history of nicotine dependence; Z79.4 Long term (current) use of insulin; Z79.02 Long term (current) use of antithrombotics/antiplatelets; Z79.899 Other long term (current) drug therapy; Z88.5 Allergy status to narcotic agent; Z88.8 Allergy status to other drugs, medicaments and biological substances
CPT/HCPCS: 36415; 71045; 80048; 80053; 82947; 83880; 84484; 85025; 85027; 93005; 93010; 96361; 96372; 96374; 99285-25; A9270; G0378; J1650; J1815; J2405; J7030

== ENCOUNTER 2025-01-02 10:30 | Emergency (ER) | payer OTHER ==
[~2025-01-02] VITALS: Ht 185.4 cm; Wt 104.3 kg
[~2025-01-02 10:30] MED LIST changes: +LOSA25 PO
[2025-01-02 11:03] LABS: BASOPHILS ABSOLUTE AUTO 0.07 K/mm3 (0.00-0.23); BASOPHILS PERCENT AUTO 1 % (0-2); EOSINOPHILS ABSOLUTE AUTO 0.23 K/mm3 (0.00-0.68); EOSINOPHILS PERCENT AUTO 3 % (0-6); Hematocrit 40.6 % (37.0-53.0); Hemoglobin 13.9 g/dL (13.5-17.5); IMMATURE GRAN ABSOLUTE AUTO 0.06 K/mm3 (0.00-0.10); IMMATURE GRAN PERCENT AUTO 1 % (0-1); LYMPHOCYTES ABSOLUTE AUTO 2.77 K/mm3 (0.84-5.20); LYMPHOCYTES PERCENT AUTO 30 % (21-46); MONOCYTES ABSOLUTE AUTO 0.97 K/mm3 (0.16-1.47); MONOCYTES PERCENT AUTO 10 % (4-13); Mean Corpuscular HGB Conc 34.2 g/dL (31.5-36.5); Mean Corpuscular Volume 89 fL (80-100); NEUTROPHILS ABSOLUTE AUTO 5.24 K/mm3 (1.96-9.15); NEUTROPHILS PERCENT AUTO 56 % (41-73); NRBC ABSOLUTE 0.00 K/mm3 (0.00-0.02); NRBC Auto 0.0 /100 WBC (0.0-0.2); Platelet Count 234 K/mm3 (150-400); RDW Coefficient Variation 13.4 % (11.7-14.2); RDW Standard Deviation 43.7 fL (35.1-46.3)
[2025-01-02 11:31] LABS: Alanine Aminotransfer (ALT/SGP 38.0 U/L (12-78); Albumin, Blood 3.5 g/dL (3.4-5.0); Albumin/Globulin Ratio 0.8 (0.8-1.8); Anion Gap 8.0 mmol/L (3-11); Aspartate Aminotrans (AST/SGOT 21.0 U/L (12-37); Bilirubin, Total 0.6 mg/dL (0.1-1.0); Blood Urea Nitrogen 31.0 mg/dL (8-24); CO2, Blood 27.0 mmol/L (21-32); Calcium, Blood 9.2 mg/dL (8.5-10.1); Chloride, Blood 105.0 mmol/L (98-108); Creatinine, Blood 1.58 mg/dL (0.60-1.20); Globulin, Blood 4.3 g/dL (2.2-4.0); Glucose, Blood 136.0 mg/dL (70-99); Potassium, Blood 4.2 mmol/L (3.5-5.5); Sodium, Blood 136.0 mmol/L (136-145); Total Protein, Blood 7.8 g/dL (6.4-8.2)
[2025-01-02 15:21] VITALS: BP 154/84
== END 2025-01-02 15:44 | disposition home or self-care (01) ==
LOC: ER 10:30
PROVIDERS: Emergency Medicine
DX: R07.89 Other chest pain (principal); I95.9 Hypotension, unspecified; I25.2 Old myocardial infarction; I25.10 Atherosclerotic heart disease of native coronary artery without angina pectoris; I10 Essential (primary) hypertension; E11.9 Type 2 diabetes mellitus without complications; E78.5 Hyperlipidemia, unspecified; K21.9 Gastro-esophageal reflux disease without esophagitis; G47.33 Obstructive sleep apnea (adult) (pediatric); Z88.8 Allergy status to other drugs, medicaments and biological substances; Z88.5 Allergy status to narcotic agent; Z79.4 Long term (current) use of insulin; Z79.82 Long term (current) use of aspirin; Z79.899 Other long term (current) drug therapy; Z87.891 Personal history of nicotine dependence
CPT/HCPCS: 71045; 80053; 82947; 84484; 85025; 93005; 93010; 99285-25; A9270

== ENCOUNTER 2025-01-15 11:15 | Emergency (ER) | payer OTHER ==
[~2025-01-15] VITALS: Ht 185.4 cm; Wt 106.6 kg
[2025-01-15] MEDS ORDERED: Ipratropium/Albuterol SulF 2.5-0.5MG/3 ML Amp INH ONE (11:30)
[2025-01-15] MEDS ORDERED: Metoclopramide HCl 5MG / ML 2ML Vial IV ONE (11:30)
[2025-01-15 11:39] LABS: BASOPHILS ABSOLUTE AUTO 0.07 K/mm3 (0.00-0.23); BASOPHILS PERCENT AUTO 1 % (0-2); EOSINOPHILS ABSOLUTE AUTO 0.24 K/mm3 (0.00-0.68); EOSINOPHILS PERCENT AUTO 2 % (0-6); Hematocrit 37.9 % (37.0-53.0); Hemoglobin 12.9 g/dL (13.5-17.5); IMMATURE GRAN ABSOLUTE AUTO 0.09 K/mm3 (0.00-0.10); IMMATURE GRAN PERCENT AUTO 1 % (0-1); LYMPHOCYTES ABSOLUTE AUTO 3.57 K/mm3 (0.84-5.20); LYMPHOCYTES PERCENT AUTO 34 % (21-46); MONOCYTES ABSOLUTE AUTO 1.18 K/mm3 (0.16-1.47); MONOCYTES PERCENT AUTO 11 % (4-13); Mean Corpuscular HGB Conc 34.0 g/dL (31.5-36.5); Mean Corpuscular Volume 87 fL (80-100); NEUTROPHILS ABSOLUTE AUTO 5.23 K/mm3 (1.96-9.15); NEUTROPHILS PERCENT AUTO 50 % (41-73); NRBC ABSOLUTE 0.00 K/mm3 (0.00-0.02); NRBC Auto 0.0 /100 WBC (0.0-0.2); Platelet Count 245 K/mm3 (150-400); RDW Coefficient Variation 13.4 % (11.7-14.2); RDW Standard Deviation 42.7 fL (35.1-46.3)
[2025-01-15 12:08] LABS: Alanine Aminotransfer (ALT/SGP 34.0 U/L (12-78); Albumin, Blood 3.2 g/dL (3.4-5.0); Albumin/Globulin Ratio 0.8 (0.8-1.8); Anion Gap 9.0 mmol/L (3-11); Aspartate Aminotrans (AST/SGOT 19.0 U/L (12-37); Bilirubin, Total 0.5 mg/dL (0.1-1.0); Blood Urea Nitrogen 27.0 mg/dL (8-24); CO2, Blood 25.0 mmol/L (21-32); Calcium, Blood 8.7 mg/dL (8.5-10.1); Chloride, Blood 108.0 mmol/L (98-108); Creatinine, Blood 1.61 mg/dL (0.60-1.20); Globulin, Blood 3.8 g/dL (2.2-4.0); Glucose, Blood 162.0 mg/dL (70-99); Magnesium, Blood 2.0 mg/dL (1.6-2.4); Potassium, Blood 3.8 mmol/L (3.5-5.5); Sodium, Blood 138.0 mmol/L (136-145); Total Protein, Blood 7.0 g/dL (6.4-8.2)
[2025-01-15] MEDS ORDERED: NS 500 ML IV SCH (12:45)
[2025-01-15] MEDS ORDERED: Albuterol 2.5 MG/3 ML VIAL INH SCH (13:25)
[2025-01-15] MEDS ORDERED: NS 1,000 ML IV SCH (14:30)
[2025-01-15] MEDS ORDERED: IPRAT-ALBUT 0.5-3 ML INH ×2 (16:40→17:11)
[2025-01-15] MEDS ORDERED: AZIT250 PO ×2 (16:40→17:11)
[2025-01-15] MEDS ORDERED: PRED20 PO ×2 (16:40→17:11)
[2025-01-15] MEDS ORDERED: ALBU2.5V5 INH ×2 (16:40→17:11)
[2025-01-15 17:51] VITALS: BP 130/64
== END 2025-01-15 18:05 | disposition home or self-care (01) ==
LOC: ER 11:15
PROVIDERS: Student in an Organized Health Care Education/Training Program
DX: E86.1 Hypovolemia (principal); I95.89 Other hypotension; E86.0 Dehydration; J44.1 Chronic obstructive pulmonary disease with (acute) exacerbation; R79.89 Other specified abnormal findings of blood chemistry; I25.10 Atherosclerotic heart disease of native coronary artery without angina pectoris; I25.2 Old myocardial infarction; I10 Essential (primary) hypertension; E78.5 Hyperlipidemia, unspecified; E11.42 Type 2 diabetes mellitus with diabetic polyneuropathy; K21.9 Gastro-esophageal reflux disease without esophagitis; G47.33 Obstructive sleep apnea (adult) (pediatric); J44.9 Chronic obstructive pulmonary disease, unspecified; Z95.1 Presence of aortocoronary bypass graft; Z87.891 Personal history of nicotine dependence; Z95.5 Presence of coronary angioplasty implant and graft; Z88.5 Allergy status to narcotic agent; Z88.8 Allergy status to other drugs, medicaments and biological substances; Z79.01 Long term (current) use of anticoagulants; Z79.4 Long term (current) use of insulin; Z79.02 Long term (current) use of antithrombotics/antiplatelets; Z79.82 Long term (current) use of aspirin; Z79.899 Other long term (current) drug therapy
CPT/HCPCS: 70450; 71046; 80053; 83735; 83880; 84484; 85025; 93005; 93010; 96365; 96375; 99285-25; A9270; J0456; J2765; J2919; J7030; J7050